=== PATIENT | male | born 1980 | race Hispanic/Latino ===

== ENCOUNTER 2021-06-23 11:34 | Emergency (ER) | payer OTHER ==
[2021-06-23] MEDS ORDERED: KETOROLAC 30 MG/1 ML INJ IV ONE (12:24)
--- NOTE | 2021-06-23 12:34 | Emergency Department Report ---
HPI - General Chief Complaint: Seizure Time Seen by Provider: 06/23/21 12:18 - HPI HPI: [facility] 5 Patient is a 40-year-old male present with chief complaint of seizures. Patient has a history of seizures and states he has been out of his seizure medication for a few days as they were mistakenly not refilled with his other medication. Patient's states that the patient had a generalized tonic-clonic seizure lasting approximately 3.5 minutes and states the seizure began the patient had fallen down to the ground against a car. Patient now only complains of some lower back pain ED Past Medical Hx - Past Medical History Hx Hypertension: Yes Hx Heart Attack/AMI: Yes (2018) Hx Seizures: Yes - Surgical History Hx Coronary Stent: Yes (2018) - Family History Family history: no significant - Social History Smoking Status: Current Every Day Smoker (1/2 pack/day) Substance Use Type: Alcohol (Frequently), Marijuana - Medications Home Medications: Home Medications Medication Instructions Recorded Confirmed Last Taken Type HYDROcodone/APAP 5-325 [[place] 1 - 2 each PO Q6HR PRN #20 tablet 06/23/21 Unknown Rx 5/325] ED Review of Systems ROS: Stated complaint: SEIZURE, SOB Other details as noted in HPI Constitutional: no symptoms reported Eyes: denies: eye pain ENT: denies: throat pain Respiratory: no symptoms reported Cardiovascular: denies: chest pain Endocrine: no symptoms reported Gastrointestinal: denies: abdominal pain Genitourinary: denies: dysuria Musculoskeletal: back pain Neurological: denies: headache Physical Exam - Physical Exam Vital Signs: Vital Signs 06/23/21 11:38 Temperature 97.8 F Pulse Rate 100 H Respiratory 20 Rate Blood Pressure 151/103 O2 Sat by Pulse 99 Oximetry Physical Exam: GENERAL: The patient is well-developed well-nourished male lying on stretcher not appearing to be in acute distress. [] HEENT: Normocephalic. Atraumatic. Extraocular motions are intact. Patient has moist mucous membranes. NECK: Supple. Trachea midline CHEST/LUNGS: Clear to auscultation. There is no respiratory distress noted. HEART/CARDIOVASCULAR: Regular. There is no tachycardia. There is no gallop rub or murmur. ABDOMEN: Abdomen is soft, nontender. Patient has normal bowel sounds. There is no abdominal distention. SKIN: There is no rash. There is no edema. There is no diaphoresis. NEURO: The patient is awake, alert, and oriented. The patient is cooperative. The patient has no focal neurologic deficits. The patient has normal speech. Cranial nerves II through XII grossly intact. GCS 15 MUSCULOSKELETAL: There is some tenderness to palpation of the lumbar spine. No axial step-off. There is no evidence of acute injury. ED Course Vital Signs 06/23/21 11:38 Temperature 97.8 F Pulse Rate 100 H Respiratory 20 Rate Blood Pressure 151/103 O2 Sat by Pulse 99 Oximetry - Consultations Consultation #1: 06/23/21 13:00 Neurosurgery paged 06/23/21 15:02 Case and CTs discussed with neurosurgeon Dr. Rachel-states he will have a TLSO brace mailed to the patient and to have the patient follow-up in the office ED Medical Decision Making - Lab Data Result diagrams: 06/23/21 12:42 06/23/21 12:42 Laboratory Tests 06/23/21 06/23/21 06/23/21 12:42 12:42 12:42 WBC 12.2 H RBC 4.68 Hgb 15.7 H Hct 45.6 MCV 98 H MCH 34 H MCHC 34 RDW 13.8 Plt Count 266 Lymph % (Auto) 14.1 Isabella % (Auto) 5.8 Eos % (Auto) 1.0 Baso % (Auto) 1.1 Lymph # (Auto) 1.7 Isabella # (Auto) 0.7 Eos # (Auto) 0.1 Baso # (Auto) 0.1 Seg Neutrophils % 78.0 H Seg Neutrophils # 9.5 H Sodium 136 L Potassium 4.3 Chloride 99.2 Carbon Dioxide 23 Anion Gap 18 BUN 10 Creatinine 0.8 Estimated GFR > 60 BUN/Creatinine Ratio 13 Glucose 101 H Calcium 8.4 Magnesium 1.80 Valproic Acid 3.3 L - Radiology Data Radiology results: report reviewed (Lumbar spine x-ray, CT thoracic spine, CT lumbar spine), image reviewed (Lumbar spine x-ray, CT thoracic, CT lumbar spine) interpreted by me: Lumbar spine [id number] fracture of T12 [facility] [address] [place] [address] XRay Report Signed Patient: DEBORA MONTAÑO MR#: [id number] : 1980 Acct:[id number] Age/Sex: 40 / M ADM Date: 06/23/21 Loc: ED Attending Dr: Ordering Physician: VIANEY RUTHERFORD MD Date of Service: 06/23/21 Procedure(s): XR spine lumbosacral 2-3V Accession Number(s): [id number] cc: VIANEY RUTHERFORD MD Fluoro Time In Minutes: Lumbar spine 3 views INDICATION: Seizure, fall FINDINGS: There is compression fracture of the T12 vertebral body. Wedging mild compression of the T10-T11 vertebral bodies as well. No retropulsion is seen. Facet degenerative changes seen throughout the lumbar spine. IMPRESSION: Compression fractures in the lower thoracic spine with wedging at T10 and T11 and compression at T12. Signer Name: Avery Menon MD Signed: 06/23/2021 12:53 PM Workstation Name: [id number] Transcribed By: CW Dictated By: FAUSTINA MENON MD Electronically Authenticated By: FAUSTINA MENON MD Signed Date/Time: 06/23/21 1253 DD/ 1252 TD/TT: [facility] [address] [place] [address] Cat Scan Report Signed Patient: DEBORA MONTAÑO MR#: [id number] : 1980 A cct:[id number] Age/Sex: 40 / M ADM Date: 06/23/21 Loc: ED Attending Dr: Ordering Physician: VIANEY RUTHERFORD MD Date of Service: 06/23/21 Procedure(s): CT thoracic spine wo con Accession Number(s): [id number] cc: VIANEY RUTHERFORD MD CT thoracic spine wo con INDICATION / CLINICAL INFORMATION: 40 years Male; Pain after fall, fractures seen on plain xr. TECHNIQUE: Axial CT images of the thoracic spine were obtained. Sagittal and coronal reformatted images were produced. All CT scans at this location are performed using CT dose reduction for ALARA by means of automated exposure control. COMPARISON: None available. FINDINGS: POST-SURGICAL CHANGES: None. ALIGNMENT: There is milder compression fracture involving the superior T12 vertebral body with associated mild kyphosis. There is no significant thoracic spondylolisthesis. VERTEBRAE: The fracture the superior T12 vertebral body results in approximately 20% loss of height. There is some lucency fragmentation superiorly indicative of acute/subacute process and correlation would be needed. There is minimal bony retropulsion on the right which slightly effaces the right subarachnoid space. There appears be diffuse osteopenia with multilevel degenerative endplate changes involving the remaining thoracic segments. However, there appears be associated sclerosis and the findings are indicative of chronic process including Schmorl's nodes at T10-11. There is no further clear evidence of recent compression fracture. INTERVERTEBRAL DISCS: The right-sided spondylosis at T9-10 mildly deforms the right thecal sac with slight encroachment on the right lateral recess at. The remaining thoracic disc spaces appear fairly well- maintained without clear CT evidence of significant bony of spinal stenosis. PARASPINAL SOFT TISSUES: No significant abnormality. ADDITIONAL FINDINGS: None. IMPRESSION: 1. There is milder compression fracture involving the superior T12 vertebral body with slight bony retropulsion on the right as detailed above. 2. There is otherwise multilevel degenerative endplate changes involving remaining thoracic segments, also described above. Signer Name: Devin Perez MD Signed: 06/23/2021 2:34 PM Workstation Name: [id number] Transcribed By: MR Dictated By: Devin Perez MD Electronically Authenticated By: Devin hines MD Signed Date/Time: 06/23/21 143 DD/ 28 TD/TT: - Differential Diagnosis Seizure, lumbar strain, lumbar contusion, lumbar fracture Critical care attestation.: If time is entered above; I have spent that time in minutes in the direct care of this critically ill patient, excluding procedure time. ED Disposition Clinical Impression: Seizure, T12 compression fracture Disposition: 01 HOME / SELF CARE / HOMELESS Is pt being admited?: No Does the pt Need Aspirin: No Condition: Stable Instructions: Spinal Compression Fracture, Seizure, Adult, [id number] Additional Instructions: Return to the emergency department should you develop worsening symptoms, inability to tolerate food or liquids, high fever or any other concerns Prescriptions: HYDROcodone/APAP 5-325 [[place] 5/325] 1 - 2 each PO Q6HR PRN #20 tablet PRN Reason: Pain Referrals: JOSH RACHEL II, MD [Staff Physician] - 3-5 Days (Dr. Rachel is a neurosurgeon. Please follow-up with him for further evaluation/management of your T12 compression fracture) Time of Disposition: 15:05
--- NOTE | 2021-06-23 12:57 | XRay Report ---
Lumbar spine 3 views INDICATION: Seizure, fall FINDINGS: There is compression fracture of the T12 vertebral body. Wedging mild compression of the T1 0-T11 vertebral bodies as well. No retropulsion is seen. Facet degenerative changes seen throughout t he lumbar spine. IMPRESSION: Compression fractures in the lower thoracic spine with wedging at T10 and T11 and compression at T12. Signer Name: Avery Menon MD Signed: 06/23/2021 12:53 PM Workstation Name: [id number]
[2021-06-23 13:16] LABS: Basophils # (Auto) 0.1 K/mm3 (0.0-0.1); Basophils % (Auto) 1.1 % (0.0-1.8); Eosinophils # (Auto) 0.1 K/mm3 (0.0-0.4); Hematocrit 45.6 % (35.5-45.6); Hemoglobin 15.7 gm/dl (11.8-15.2); Lymphocytes # (Auto) 1.7 K/mm3 (1.2-5.4); Lymphocytes % (Auto) 14.1 % (13.4-35.0); Mean Corpuscular HGB Conc 34 % (32-34); Mean Corpuscular Volume 98 fl (84-94); Monocytes # (Auto) 0.7 K/mm3 (0.0-0.8); Monocytes % (Auto) 5.8 % (0.0-7.3); Platelet Count 266 K/mm3 (140-440); Red Blood Count 4.68 M/mm3 (3.65-5.03); Red Cell Distribution Width 13.8 % (13.2-15.2)
[2021-06-23 13:39] LABS: BUN/Creatinine Ratio 13; Blood Urea Nitrogen 10 mg/dL (9-20); Calcium 8.4 mg/dL (8.4-10.2); Hemolysis Index 10
[2021-06-23] MEDS ORDERED: VALPROATE SODIUM 500 MG in SODIUM CHLORIDE 0.9% 100 ML IV ONE (13:39)
--- NOTE | 2021-06-23 14:33 | Cat Scan Report ---
CT lumbar spine wo con INDICATION / CLINICAL INFORMATION: 40 years Male; Pain after fall, fractures seen on plain xr. TECHNIQUE: Axial CT images of the lumbar spine were obtained with sagittal and coronal reconstructions. All CT s cans at this location are performed using CT dose reduction for ALARA by means of automated exposure control. COMPARISON: None available. FINDINGS: POST-SURGICAL CHANGES: None. ALIGNMENT: There is no significant spondylolisthesis or scoliosis of the lumbar spine. VERTEBRAE: There is milder compression or fracture involving the superior T12 vertebral body with nohemy roximately 20% loss of height. Additionally, there appears to be some mild lucency and fragmentation indicative of acute/subacute process and correlation would be needed at. There is minimal retropulsio n on the right with minimal flattening of the right at thecal sac. The posterior elements appear inta ct. The lumbar segments with Schmorl's nodes, most notably involving superior L3 vertebral body. However, there is no clear CT evidence of acute fracture of the lumbar spine. INTERVERTEBRAL DISCS: There is right foraminal osteophyte/disc complex at L5-S1 which effaces the rig ht neural foramen and encroaches on the exiting right L5 nerve root sheath. Milder narrowing is seen on the left. The disc bulge slightly encroaches on the right lateral recess. The broad-based disc bulge L4-5 mildly deforms the ventral thecal sac. There is mild right neural for aminal narrowing. The disc bulge L3-L4 slightly flattens the thecal sac at. The neural foramen appear patent. There is no clear CT evidence of significant stenosis at L1-2 or L2-3. PARASPINAL SOFT TISSUES: No significant abnormality. ADDITIONAL FINDINGS: None. IMPRESSION: 1. There is milder compression or fracture involving superior T12 vertebral body with minimal right-s ided bony retropulsion as detailed above. 2. There are multilevel degenerative the changes involving lumbar spine, also described above. 3. The CT thoracic spine will be dictated separately. Signer Name: Devin Perez MD Signed: 06/23/2021 2:29 PM Workstation Name: [id number]
[2021-06-23] MEDS ORDERED: ONDANSETRON 4 MG/2 ML INJ IV ONE (14:34)
[2021-06-23] MEDS ORDERED: fentaNYL 100 MCG/2 ML INJ IV ONE (14:34)
--- NOTE | 2021-06-23 14:38 | Cat Scan Report ---
CT thoracic spine wo con INDICATION / CLINICAL INFORMATION: 40 years Male; Pain after fall, fractures seen on plain xr. TECHNIQUE: Axial CT images of the thoracic spine were obtained. Sagittal and coronal reformatted images were pr oduced. All CT scans at this location are performed using CT dose reduction for ALARA by means of aut omated exposure control. COMPARISON: None available. FINDINGS: POST-SURGICAL CHANGES: None. ALIGNMENT: There is milder compression fracture involving the superior T12 vertebral body with associ ated mild kyphosis. There is no significant thoracic spondylolisthesis. VERTEBRAE: The fracture the superior T12 vertebral body results in approximately 20% loss of height. There is some lucency fragmentation superiorly indicative of acute/subacute process and correlation w ould be needed. There is minimal bony retropulsion on the right which slightly effaces the right suba rachnoid space. There appears be diffuse osteopenia with multilevel degenerative endplate changes involving the remai carly thoracic segments. However, there appears be associated sclerosis and the findings are indicativ e of chronic process including Schmorl's nodes at T10-11. There is no further clear evidence of recen t compression fracture. INTERVERTEBRAL DISCS: The right-sided spondylosis at T9-10 mildly deforms the right thecal sac with s light encroachment on the right lateral recess at. The remaining thoracic disc spaces appear fairly w ell-maintained without clear CT evidence of significant bony of spinal stenosis. PARASPINAL SOFT TISSUES: No significant abnormality. ADDITIONAL FINDINGS: None. IMPRESSION: 1. There is milder compression fracture involving the superior T12 vertebral body with slight bony re tropulsion on the right as detailed above. 2. There is otherwise multilevel degenerative endplate changes involving remaining thoracic segments, also described above. Signer Name: Devin Perez MD Signed: 06/23/2021 2:34 PM Workstation Name: [id number]
[2021-06-23 16:03] VITALS: BP 140/92
== END 2021-06-23 16:03 | disposition home or self-care (01) ==
LOC: ED 11:34
DX: S22.088A Other fracture of T11-T12 vertebra, initial encounter for closed fracture (principal); R56.9 Unspecified convulsions; I10 Essential (primary) hypertension; F12.90 Cannabis use, unspecified, uncomplicated; F17.210 Nicotine dependence, cigarettes, uncomplicated; Z79.899 Other long term (current) drug therapy; W18.39XA Other fall on same level, initial encounter; Y93.89 Activity, other specified; Y92.89 Other specified places as the place of occurrence of the external cause; Y99.8 Other external cause status
CPT/HCPCS: 36415; 72100; 72128; 72131; 80048; 80164; 83735; 85025; 96365; 96375; 99284; J1885; J2405; J3010